=== PATIENT | female | born 1970 | race Hispanic/Latino ===

== ENCOUNTER 2017-04-01 05:55 | Day surgery (SDC) | payer MEDICARE ==
[~2017-04-01 05:55] MED LIST: TETRACAINE 0.5% OD PRN
[2017-04-01] MEDS ORDERED: NACL BACTERIOSTATIC INFILTRATI ONE (06:12)
[2017-04-01] MEDS: ISOPTO CARPINE OD SCH ×3 (06:35→06:45)
[2017-04-01] MEDS: VIGAMOX OD SCH ×3 (06:35→06:45)
--- NOTE | 2017-04-01 06:48 | Anesthesia Consultation ---
Anesthesia Consult and Med Hx Date of service: 04/01/17 - Airway Anesthetic Teeth Evaluation: Good ROM Head & Neck: Adequate Mental/Hyoid Distance: Adequate Mallampati Class: Class II Intubation Access Assessment: Probably Good - Pulmonary Exam CTA: Yes - Cardiac Exam Cardiac Exam: RRR - Pre-Operative Health Status ASA Pre-Surgery Classification: ASA2 Proposed Anesthetic Plan: General, MAC - Pulmonary Hx Smoking: Yes (quit x 1 year) Hx Asthma: No COPD: No Hx Pneumonia: No Hx Sleep Apnea: No - Cardiovascular System Hx Hypertension: No Hx Heart Attack/AMI: No Hx Heart Murmur: No - Central Nervous System Hx Back Pain: Yes Hx Psychiatric Problems: Yes - Endocrine Hx Hypothyroidism: Yes - Hematic Hx Anemia: No Hx Sickle Cell Disease: No - Other Systems Hx Substance Use: Yes (CLEAN FOR THREE YEARS) Hx Cancer: No Hx Obesity: Yes
--- NOTE | 2017-04-01 06:49 | Anesthesia Day of Surgery ---
Anesthesia Day of Surgery - Day of Surgery Patient Examined: Yes Patient H&P Reviewed: Yes Patient is NPO: Yes
[2017-04-01] MEDS ORDERED: SUBLIMAZE ONE (06:53)
[2017-04-01] MEDS ORDERED: VERSED ONE ×2 (06:53→07:28)
[2017-04-01] MEDS ORDERED: LACTATED RINGERS 1,000 ML IV SCH (07:00)
[2017-04-01] MEDS ORDERED: PEPCID IV NR (07:00)
[2017-04-01] MEDS ORDERED: BSS OD ONE (07:17)
[2017-04-01] MEDS ORDERED: PRED FORTE 1% ONE (07:20)
--- NOTE | 2017-04-01 07:36 | Short Stay Summary ---
Short Stay Documentation Date of service: 04/01/17 - History H&P: obtained from office - Allergies and Medications Current Medications: Allergies No Known Allergies Allergy (Verified 03/31/17 17:07) Home Medications Medication Instructions Recorded Confirmed Last Taken Type Levothyroxine [Synthroid] 75 mcg PO QAM 03/31/17 04/01/17 03/31/17 History Venlafaxine HCl [Effexor Xr] 150 mg PO QDAY 03/31/17 04/01/17 03/31/17 History Active Medications Famotidine (Pepcid) 20 mg IV PREOP NR Stop: 04/01/17 23:45 Last Admin: 04/01/17 07:00 Dose: 20 mg Lactated Ringer's (Lactated Ringers) 1,000 mls @ 100 mls/hr IV DIRECT HOLLI Last Admin: 04/01/17 06:59 Dose: 100 mls/hr Moxifloxacin HCl (Vigamox) 1 drops OD Q5MIN HOLLI Stop: 04/03/17 00:02 Last Admin: 04/01/17 06:45 Dose: 1 drops Pilocarpine HCl (Isopto Carpine) 1 drops OD Q5MIN HOLLI Stop: 04/03/17 01:01 Last Admin: 04/01/17 06:45 Dose: 1 drops Prednisolone Acetate (Pred Forte 1%) 1 drops OD QID HOLLI Tetracaine HCl (Tetracaine 0.5%) 1 drops OD Q5M PRN PRN Reason: Analgesia Stop: 04/01/17 23:59 Last Admin: 04/01/17 06:27 Dose: 1 drops - Brief post op/procedure progress note Date of procedure: 04/01/17 Pre-op diagnosis: detached DMEAK graft right eye Post-op diagnosis: same Procedure: Rebubbling of corneal graft right eye Anesthesia: MAC, local Surgeon: ENRICO MCINTYRE Estimated blood loss: none Pathology: none Condition: stable - Disposition Condition at discharge: Good Disposition: DC-01 TO HOME OR SELFCARE - Discharge Diagnoses (1) Dislocated Descemet's stripping endothelial keratoplasty (DSEK) graft Status: Acute Qualifiers: Encounter type: initial encounter Qualified Code(s): T85.328A - Displacement of other ocular prosthetic devices, implants and grafts, initial encounter Short Stay Discharge Plan Forms: Outpatient Surgery DC Inst.
--- NOTE | 2017-04-01 07:40 | Operative Report ---
Operative Report Operative Report: PATIENT NAME: DATE OF : DATE OF SURGERY: 04/01/2017 PREOPERATIVE DIAGNOSIS: Dislocated DSEAK graft right eye POSTOPERATIVE DIAGNOSIS: Same PROPOSED PROCEDURE: Rebubbling ofDMEAK graft right eye ADDITIONAL PROCEDURE: Removal of suture OPERATIVE PROCEDURE: 1 same SURGEON: Suellen Vasquez MD ANESTHESIA: Monitored anesthesia care in combination with topical and intracameral anesthesia because of the established specific risk of reflux, arrhythmias, or anxiety attacks associated with ocular manipulation, as well as the difficulty of the straddle carrier operator to manage such potentially catastrophic events while simultaneously attempting to complete the surgical procedure and was deemed necessary for the patient's safety to have an anesthesiologist was present during the procedure whenever possible. The anesthesiologist was utilized to regulate the intravenous sedation of the patient so the patient was cooperative yet not asleep in order for the patient to successfully maintain fixation of the eye on the operating light of the microscope. KENNEL HAND: COMPLICATIONS: None ALLERGIES: No known drug allergies PREOPERATIVE NOTE: The patient had a previous history of corneal graft done last week when she was seen on postoperative day #1 the graft was found to be completely attached for these included the graft was detached and the patient was complaining of pain temporarily. At examination he was noted that her suture looked infected so decision was made to remove the suture. PROGNOSIS: Excellent INDICATIONS FOR SURGERY: The patient is undergoing surgery with the hope of eliminating or improving these visual difficulties. OPERATIVE REPORT: The patient was taken into the preoperative area and evaluated medically and found from a systemic standpoint to be suitable for the planned surgery and anesthesia. The patient was then sedated and monitored by anesthesia. The patient was next taken into the operating room where they were positioned on the operating bed. They were given drops of topical anesthetic in the operative eye. Betadine was used to scrub the periorbital area, eyelids, adjacent cheek and forehead. The prepped area was dried with sterile gauze. The patient was draped, and a wire speculum was placed between the eyelids. The suture abdomen incision was removed. A supersharp blade was used to make an incision to the left. The air was slowly injected to unfold the donor endothelial side down. Once the donor had unfolded, the anterior chamber was completely filled with air. DISCHARGE SUMMARY: The patient was released in stable condition. The patient and those with the patient were given a written sheet of postoperative instructions and counseling on any abnormal laboratory studies. The patient is to call immediately for difficulties and will otherwise see us in the morning at the office. . Suellen Vasquez M.D. Date cc: Dictated: Worksheets: Transcribed:
[2017-04-01] MEDS ORDERED: BSS ONE (07:42)
[2017-04-01 08:19] VITALS: BP 106/68
--- NOTE | 2017-04-01 08:29 | Post Anesthesia Evaluation ---
- Post Anesthesia Evaluation Patient Participated: Yes Airway Patent: Yes Stable Respiratory Function: Yes Temp > 96.8F: Yes Pain Manageable: Yes Adequeate Hydration: Yes Anesthesia Complications: No
[2017-04-01] MEDS ORDERED: TYLENOL PO ONE (09:00)
[2017-04-01] MEDS ORDERED: PRED FORTE 1% OD SCH (10:00)
== END 2017-04-01 08:30 | disposition home or self-care (01) ==
LOC: OR 05:55
DX: T86.842 Corneal transplant infection (principal); T85.328A Displacement of other ocular prosthetic devices, implants and grafts, initial encounter; K21.9 Gastro-esophageal reflux disease without esophagitis; E03.9 Hypothyroidism, unspecified; Z90.710 Acquired absence of both cervix and uterus; Z98.890 Other specified postprocedural states; Z87.891 Personal history of nicotine dependence; E66.9 Obesity, unspecified; Z68.39 Body mass index [BMI] 39.0-39.9, adult; Y83.2 Surgical operation with anastomosis, bypass or graft as the cause of abnormal reaction of the patient, or of later complication, without mention of misadventure at the time of the procedure
CPT/HCPCS: 65220; 66020; J2250; J3010; J7120